=== PATIENT | female | born 1960 | race Caucasian/White ===

== ENCOUNTER 2016-04-11 14:37 | Day surgery (SDC) | payer BC ==
[~2016-04-11] VITALS: Ht 172.7 cm; Wt 71.3 kg
[2016-04-11 15:47] VITALS: BP 117/67; PULSE 76; TEMP 98.6
[2016-04-11] MEDS ORDERED: PYRIDIUM 100MG100 MG PO (15:50)
[2016-04-11] MEDS ORDERED: CYMBALTA 60MG60 MG PO (15:51)
[2016-04-11] MEDS ORDERED: BUSPAR DIVIDOSE15 MG PO (15:51)
[2016-04-11] MEDS ORDERED: AMOXICILLIN 8751 TAB PO (15:52)
[2016-04-11] MEDS ORDERED: B-12 100 MCG PO (15:54)
[2016-04-11] MEDS ORDERED: VENTOLIN0.09 MG IH (15:54)
[2016-04-11] MEDS ORDERED: OS-CAL 500 + D1 TAB (15:55)
[2016-04-11] MEDS ORDERED: FLEXERIL5 MG PO (15:55)
[2016-04-11] MEDS ORDERED: ADDERALL XR20 MG PO (15:56)
[2016-04-11] MEDS ORDERED: KLONOPIN 1MG1 MG PO (15:56)
[2016-04-11] MEDS ORDERED: DUO-KAPS1 CAP PO (15:57)
[2016-04-11] MEDS ORDERED: DESYREL 50MG50 MG PO (15:57)
[2016-04-11 19:00] VITALS: BP 110/70; PULSE 58; TEMP 97.5
[2016-04-11 19:45] VITALS: BP 114/68; PULSE 66
[2016-04-11 20:30] VITALS: BP 104/64; PULSE 58
== END 2016-04-11 20:58 | disposition home or self-care (01) ==
LOC: SDCO 14:37 → SURG 18:45 → SDCO 20:58
DX: R31.0 Gross hematuria (principal); R39.14 Feeling of incomplete bladder emptying; R10.2 Pelvic and perineal pain; N89.8 Other specified noninflammatory disorders of vagina
CPT/HCPCS: OP; C1769; J0690; J1100; J2405; J2704; J3010; J7120; Q9967

== ENCOUNTER 2016-04-13 14:17 | Day surgery (SDC) | payer BC ==
[~2016-04-13] VITALS: Ht 172.7 cm; Wt 71.8 kg
[2016-04-13] VITALS (7 sets, daily range): BP systolic 109–125; BP diastolic 67–83; PULSE 71–105; TEMP 98.2–98.7
[~2016-04-13 14:17] MED LIST: ADDERALL XR20 MG PO; AMOXICILLIN 8751 TAB PO; B-12 100 MCG PO; BUSPAR DIVIDOSE15 MG PO; CYMBALTA 60MG60 MG PO; DESYREL 50MG50 MG PO; DUO-KAPS1 CAP PO; FLEXERIL5 MG PO; KLONOPIN 1MG1 MG PO; OS-CAL 500 + D1 TAB; PYRIDIUM 100MG100 MG PO; VENTOLIN0.09 MG IH
[2016-04-13] MEDS ORDERED: FLEXERIL 1010 MG/TAB PO (14:41)
[2016-04-13] MEDS ORDERED: NORCO 325 MG-51 TAB PO (14:46)
[2016-04-13] MEDS ORDERED: PYRIDIUM 100MG100 MG PO (14:47)
== END 2016-04-13 19:07 | disposition home or self-care (01) ==
LOC: SDCO 14:17 → JCC 17:41 → SDCO 19:07
DX: R10.11 Right upper quadrant pain (principal); F32.9 Major depressive disorder, single episode, unspecified; Z79.899 Other long term (current) drug therapy
CPT/HCPCS: OP; C1769; C2617; J0690; J1100; J1885; J2270; J2405; J2704; J3010; J7120; Q9967

== ENCOUNTER → 2016-10-30 | Outpatient (CLI) | payer BC ==
[~2016-10-30] MED LIST changes: +FLEXERIL 1010 MG/TAB PO; +NORCO 325 MG-51 TAB PO
== END ==
LOC: MC.RAD 09:08
DX: Z12.31 Encounter for screening mammogram for malignant neoplasm of breast (principal)

== ENCOUNTER → 2017-12-24 | Outpatient (CLI) | payer BC | LOC: MC.RAD 14:14 | DX: Z12.31 Encounter for screening mammogram for malignant neoplasm of breast (principal) ==

== ENCOUNTER → 2018-12-27 | Outpatient (CLI) | payer BC | LOC: MC.RAD 10:17 | DX: Z12.31 Encounter for screening mammogram for malignant neoplasm of breast (principal) ==

== ENCOUNTER → 2021-01-19 | Outpatient (CLI) | payer BC | LOC: MC.RAD 09:38 | DX: Z12.31 Encounter for screening mammogram for malignant neoplasm of breast (principal) ==